=== PATIENT | female | born 1950 | race Caucasian/White ===

== ENCOUNTER 2020-04-11 14:31 | Emergency (ER) | payer OTHER ==
[2020-04-11] MEDS ORDERED: CYCLOBENZAPRINE10 MG PO (16:10)
[2020-04-11] MEDS ORDERED: IBUPROFEN800 MG PO (16:10)
[2020-04-11] MEDS ORDERED: PROTONIX40 MG PO (16:10)
== END 2020-04-11 16:45 | disposition home or self-care (01) ==
LOC: ER1 14:31
DX: M43.16 Spondylolisthesis, lumbar region (principal); M47.816 Spondylosis without myelopathy or radiculopathy, lumbar region; I10 Essential (primary) hypertension; E11.9 Type 2 diabetes mellitus without complications
CPT/HCPCS: 72100; 81001; 87086; 96372; 99283

== ENCOUNTER → 2020-09-10 | Outpatient (CLI) | payer OTHER ==
[~2020-09-10] MED LIST: CYCLOBENZAPRINE10 MG PO; IBUPROFEN800 MG PO; PROTONIX40 MG PO
[2020-09-10 12:17] LABS: HEMOGLOBIN 12.1 gm/dl (12.3-15.3); RED BLOOD COUNT 4.15 M/UL (4.00-5.10); WHITE BLOOD COUNT 5.6 K/UL (4.5-11.0)
[2020-09-10 13:01] LABS: BUN/CREATININE RATIO 16 (0-10)
[2020-09-11 10:14] LABS: CREATININE, URINE 54.3 mg/dL (Not Estab.)
[2020-09-12 14:12] LABS: CHOLESTEROL, TOTAL 175 mg/dL (100-199); HDL SIZE 9.6 nm (>=9.2); HDL-C 57 mg/dL (>39); HDL-P (TOTAL) 37.6 umol/L (>=30.5); LARGE HDL-P 6.6 umol/L (>=4.8); LARGE VLDL-P 5.6 nmol/L (<=2.7); LDL SIZE 20.4 nm (>20.5); LDL SIZE 20.4 nm (>=20.8); LDL-C 91 mg/dL (0-99); LDL-P 1193 nmol/L (<1000); LP-IR SCORE 49 (<=45); SMALL LDL-P 634 nmol/L (<=527); TRIGLYCERIDES 156 mg/dL (0-149)
[2020-09-14 20:14] LABS: 25-HYDROXY, VITAMIN D 49 ng/mL (.); 25-HYDROXY, VITAMIN D-2 <1.0 ng/mL (.); 25-HYDROXY, VITAMIN D-3 49 ng/mL (.)
== END ==
LOC: LAB 10:55
PROVIDERS: Emergency Medicine
DX: E11.65 Type 2 diabetes mellitus with hyperglycemia (principal); I10 Essential (primary) hypertension; E78.2 Mixed hyperlipidemia; R53.83 Other fatigue; R06.02 Shortness of breath; R60.0 Localized edema
CPT/HCPCS: 36415; 71046; 80053; 80061; 82043; 82306; 82570; 83036; 83704; 83880; 84443; 84484; 84550; 85025; 85379

== ENCOUNTER → 2021-02-11 | Outpatient (CLI) | payer OTHER ==
[2021-02-11 11:32] LABS: BUN/CREATININE RATIO 14 (0-10)
== END ==
LOC: LAB 10:40
PROVIDERS: Emergency Medicine
DX: I10 Essential (primary) hypertension (principal); E78.2 Mixed hyperlipidemia; E11.65 Type 2 diabetes mellitus with hyperglycemia
CPT/HCPCS: 36415; 80048; 83036

== ENCOUNTER → 2021-04-02 | Outpatient (CLI) | payer OTHER | LOC: EXRD 09:43 | DX: M47.22 Other spondylosis with radiculopathy, cervical region (principal); M54.9 Dorsalgia, unspecified; G89.29 Other chronic pain; M47.814 Spondylosis without myelopathy or radiculopathy, thoracic region | CPT/HCPCS: 72040; 72070; 72100 ==

== ENCOUNTER → 2021-04-17 | Outpatient (CLI) | payer OTHER | LOC: MRI 14:00 → US 04-18 13:00 → KOH-I 04-18 13:00 | DX: M47.816 Spondylosis without myelopathy or radiculopathy, lumbar region (principal); R29.2 Abnormal reflex; R13.10 Dysphagia, unspecified | CPT/HCPCS: 72148; 76536 ==

== ENCOUNTER → 2021-04-25 | Outpatient (CLI) | payer OTHER | LOC: NM 04-16 10:00 | DX: I25.10 Atherosclerotic heart disease of native coronary artery without angina pectoris (principal); R07.9 Chest pain, unspecified; R53.83 Other fatigue; I10 Essential (primary) hypertension; R06.02 Shortness of breath | CPT/HCPCS: 78452; 93017; A9502; J2785 ==

== ENCOUNTER → 2021-11-12 | Outpatient (CLI) | payer OTHER ==
[2021-11-12 10:46] LABS: HEMOGLOBIN 12.5 gm/dl (12.3-15.3); RED BLOOD COUNT 4.21 M/UL (4.00-5.10); WHITE BLOOD COUNT 6.5 K/UL (4.5-11.0)
[2021-11-12 11:11] LABS: BUN/CREATININE RATIO 17 (0-10)
[2021-11-13 11:12] LABS: CREATININE, URINE 156.9 mg/dL (Not Estab.)
== END ==
LOC: LAB 09:56
PROVIDERS: Nurse Practitioner Family
DX: E11.9 Type 2 diabetes mellitus without complications (principal); E78.5 Hyperlipidemia, unspecified; M54.50 Low back pain, unspecified; K21.9 Gastro-esophageal reflux disease without esophagitis; I10 Essential (primary) hypertension; Z00.00 Encounter for general adult medical examination without abnormal findings
CPT/HCPCS: 36415; 80053; 80061; 81001; 82043; 82570; 82607; 83036; 84439; 84443; 85025